=== PATIENT | female | born 1990 ===

== ENCOUNTER 2017-11-17 16:56 | Observation (INO) | payer OTHER ==
[~2017-11-17] VITALS: Ht 158.8 cm; Wt 71.7 kg
== END 2017-11-18 07:00 ==
LOC: CBCO 16:56 → GNO 21:05
DX: O47.03 False labor before 37 completed weeks of gestation, third trimester (principal); Z3A.36 36 weeks gestation of pregnancy
CPT/HCPCS: 81001; 84112; 87086; G0378; G0463

== ENCOUNTER 2017-11-22 14:48 | Observation (INO) | payer OTHER ==
[~2017-11-22] VITALS: Ht 157.5 cm; Wt 70.8 kg
[2017-11-22] MEDS ORDERED: PRENATAL TABLE1 EAC2 PO (15:12)
[2017-11-22] MEDS ORDERED: ZANTAC150 M1 PO (15:14)
[2017-11-22 15:36] LABS: ABSOLUTE BASOPHIL COUNT 0 /CUMM (0.0-0.2); ABSOLUTE EOSINOPHIL COUNT 0 /CUMM (0.0-0.7); ABSOLUTE GRANULOCYTE CT 7.2 /CUMM (1.4-6.5); ABSOLUTE LYMPH COUNT 1.7 /CUMM (1.2-3.4); ABSOLUTE MONOCYTE COUNT 0.4 /CUMM (0.10-0.60); BASOPHIL % 0.2 % (0.0-2.0); EOSINOPHIL % 0.4 % (0-5); GRANULOCYTE % 76.8 % (42.2-75.2); HEMATOCRIT 33.9 % (37-47); MEAN CORPUSCULAR HGB 28.7 PG (27.0-31.0); MEAN CORPUSCULAR HGB CONC 33.1 G/DL (33.0-37.0); MEAN CORPUSCULAR VOLUME 86.8 FL (81.0-99.0); MEAN PLATELET VOLUME 7.1 FL (7.4-10.4); PLATELET COUNT 367 /CUMM (130-400); RBC DISTRIBUTION WIDTH 16.2 % (11.5-14.5); RED BLOOD CELL CT 3.91 /CUMM (4.20-5.40); WHITE BLOOD CELL COUNT 9.4 /CUMM (4.8-10.8)
--- NOTE | 2017-11-22 18:51 | PN- OBGYN ---
Surgical Brief Attending Note Brief Attending Note: 27yo, , 37 wks, she was sent from office for labor evaluation. uncomplicated course, as per pt, she felt some ctxs today, ? LOF, no VB , reports GDFM. GBS negative on TOCO: irregular ctxs, FHR cat I, cervix 5-6/80%/-2, Amnisure negative. pt was encourage to ambulate, cervix remained unchage after 3 hours. will keep pt at [facility] for observation overnight.
[2017-11-22 19:23] VITALS: BP 99/60
== END 2017-11-23 08:30 ==
LOC: GNO 14:48
PROVIDERS: Obstetrics & Gynecology
DX: O47.03 False labor before 37 completed weeks of gestation, third trimester (principal); Z3A.36 36 weeks gestation of pregnancy
CPT/HCPCS: GNOP; 81001; 84112; 87389; G0378; G0463; J7120

== ENCOUNTER 2017-11-28 17:50 | Inpatient (IN) | payer OTHER ==
[~2017-11-28] VITALS: Ht 157.5 cm; Wt 71.0 kg
[~2017-11-28 17:50] MED LIST: PRENATAL TABLE1 EAC2 PO; ZANTAC150 M1 PO
[2017-11-28 18:38] VITALS: BP 113/57
[2017-11-28 19:44] LABS: ABSOLUTE BASOPHIL COUNT 0 /CUMM (0.0-0.2); ABSOLUTE EOSINOPHIL COUNT 0.1 /CUMM (0.0-0.7); ABSOLUTE GRANULOCYTE CT 8.3 /CUMM (1.4-6.5); ABSOLUTE LYMPH COUNT 2.4 /CUMM (1.2-3.4); ABSOLUTE MONOCYTE COUNT 0.7 /CUMM (0.10-0.60); BASOPHIL % 0.3 % (0.0-2.0); EOSINOPHIL % 0.6 % (0-5); GRANULOCYTE % 72.7 % (42.2-75.2); HEMATOCRIT 34.2 % (37-47); MEAN CORPUSCULAR HGB 28.6 PG (27.0-31.0); MEAN CORPUSCULAR HGB CONC 33.1 G/DL (33.0-37.0); MEAN CORPUSCULAR VOLUME 86.4 FL (81.0-99.0); MEAN PLATELET VOLUME 7.5 FL (7.4-10.4); PLATELET COUNT 369 /CUMM (130-400); RED BLOOD CELL CT 3.96 /CUMM (4.20-5.40); WHITE BLOOD CELL COUNT 11.4 /CUMM (4.8-10.8)
--- NOTE | 2017-11-28 19:53 | History & Physical ---
General Information and HPI MD Statement: I have seen and personally examined COURTNEY GOODWIN and documented this H&P. The patient is a 27 year old female at [37] weeks and [6] days gestation who presented with a chief complaint of [LOF]. 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 denies VB, reports GFM. came in for evaluation, amnisure positive. care started at 25 wks, uncomplicated thus far. 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 History: non-contributory Past Pregnancies Past Pregnancies: Date of Delivery: 07/13/2015 11/27/2016 Gestational Age: 40wks Weight: 8lbs 8lbs6 oz Type of Delivery: vaginal Anesthesia: epidural Complications: none Medical History Blood Transfusion Hx: No Neurological: NONE EENT: NONE Cardiovascular: NONE Respiratory: NONE Gastrointestinal: NONE Hepatic: NONE Renal: NONE Musculoskeletal: NONE Psychiatric: NONE Endocrine: NONE Blood Disorders: NONE Cancer(s): NONE 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 Home Smoking Status: Never Smoked ETOH Use: denies use Illicit Drug Use: denies illicit drug use Review of Systems Review of Systems Constitutional: Reports: no symptoms. EENTM: Reports: no symptoms. Cardiovascular: Reports: no symptoms. Respiratory: Reports: no symptoms. GI: Reports: no symptoms. Genitourinary: Reports: see HPI. Musculoskeletal: Reports: no symptoms. Skin: Reports: no symptoms. Neurological/Psychological: Reports: no symptoms. Hematologic/Endocrine: Reports: no symptoms. Immunologic/Allergic: Reports: no symptoms. All Other Systems: Reviewed and Negative Date of LMP: 03/08/17 Exam & Diagnostic Data Last 24 Hrs of Vital Signs/I&O Vital Signs Date Time Temp Pulse Resp B/P B/P Pulse O2 O2 Flow FiO2 Mean Ox Delivery Rate 11/28 1837 113/57 Obstetric Exam Wgt Gained During : 12 lb Pelvimetry: adequate Dilation (cm): 5 Effacement (%): 80 Station: -1 Membranes: SROM Fluid: clear Fundal Height (cm): 37 Multiple Gestation? No Contractions: occasional Infant #1 - FHR Baseline: 120 Category: 1 Estimated Weight: 3300g Presentation: vertex Patient for Induction? No Physical Exam: VSS General: NAD Abdomen: gravid, soft, nontender Ext: DCT (-) Labs Blood Type & Rh: O positive Antibody Screen: negative Hct/Hgb & Platelets #1: 10.5/33.8%,[id number] Hct/Hgb & Platelets #2: 11.3/34.2%,PLT [id number] Rubella: immune VDRL #1: negative VDRL #2: negative HbsAg: negative HIV #1: negative HIV #2 negative 1 Hr P Group B Strep: negative Initial Ultrasound: IUP at 25 wks Anatomy Ultrasound: NL Genetic Testing: none Last 24 Hrs of Labs/Perico: Laboratory Tests 11/28/17 1850: CBC w Diff NO MAN DIFF REQ, RBC 3.96 L, MCV 86.4, MCH 28.6, MCHC 33.1, RDW 16.0 H, MPV 7.5, Gran % 72.7, Lymphocytes % 20.5, Monocytes % 5.9, Eosinophils % 0.6 , Basophils % 0.3, Absolute Granulocytes 8.3 H, Absolute Lymphocytes 2.4, Absolute Monocytes 0.7 H, Absolute Eosinophils 0.1, Absolute Basophils 0 11/28/17 1805: Membrane Rupture POSITIVE Assessment/Plan Assessment/Plan: 27yo, , 37 6/7wks SROM 1. admit pt, admission labs 2. pain management as needed 3. may consider pitocin augmentation if needed As Ranked By This Provider Problem List: 1. 2. SROM (spontaneous rupture of membranes) Core Measures Venous Thromboembolism VTE Risk Factors / No Mechanical VTE Prophylaxis d/t LowRisk-No Interven Req'd No VTE Pharm Prophylaxis d/t LowRisk-No Interven Rewili'd Attending MD Review Statement Attending Statement Attending MD Statement: examined this patient, discussed with family, discussed w/nursing
--- NOTE | 2017-11-28 23:09 | PN- OBGYN ---
Surgical Brief Attending Note Brief Attending Note: pt is comfortable with epidural, no complaints. pitocin at 8 mU/min on TOCO: ctxs q 3min, FHR baseline 115, moderate variability, + acels, 1 variable decles to 70, last 20 sec, then gradually return to baseline,with moderate variability cervix 6/90%/-1 will continue monitor closely
--- NOTE | 2017-11-29 05:22 | PN- OBGYN ---
Surgical Brief Attending Note Brief Attending Note: pt is comfortable with epidural, no complaints, pitocin at 16 mU/min on TOCO: ctxs q 2-3 min, FHR [id number], moderate variablity, + acels, no decels cervix 6-7cm/90%/-1 will continue monitor closely
--- NOTE | 2017-11-29 10:28 | PN- OBGYN ---
Surgical Brief Attending Note Brief Attending Note: Pt. supine in bed awake, leg up on the peanut, denies pain but c/o GERD sxs and would like some medicine PO. FHR 140, category 1, UCs 2-4, subtle coupling Cervix 6cm, 70% floppy, head -2 not applied to cervix and can be manually rotated easily. A/P protracted labor on Pitocin for PROM membranes have been ruptured for 24 hours now and samynet's temp is 99.5, I recommended giving IV antibiotics and Tylenol to help protect the baby, patient agrees - will continue Pitocin perprotocol and re-examine her in 2 hours - I explained to the patient that if the baby gets stressed or if patient gets sick with fever, or of hr labor does not progress all day, I will need to deliver her baby by C/S. - Bicitrate and IV Pepcid for her heartburn as requested
--- NOTE | 2017-11-29 12:56 | Labor & Delivery Summary ---
Delivery Summary Vaginal Delivery: Vaginal: vertex Episiotomy/Lacerations: Episiotomy/Lacerations: first degree perineal laceration Repair: 3.0 Vicryl Anesthesia: epidural Placenta: Placenta: spontanteous, normal, 3 vessel, nuchal cord (x_) (2), true knot, loose nuchal cord X2, easily reduced on the perineum very long cord true knot X1 Anesthesia: block Baby's Weight: [id number] Apgars - 1 Min: 9 Apgars - 5 Min: 9 Additional Comments: Multipara was delivered at 37w of a single viable female , 9,9 [id number] from the SARAH position over an intact perineum with 1st-degree laceration.Nuchal cord X2 loose easily reduced on the perineum True knot X1, loose. AF clear, 3VC, placenta delivered spontaneously and intact. Repair with 3.0 Vicryl in layers. Vulvar structures, lateral vaginal peterson, cervix, rectal sphincter and mucosa intact. Small clots evacuated from the JENN, fundus firm, EBL 100cc. Sponge and sharps correct.
[2017-11-30 08:59] LABS: ABSOLUTE BASOPHIL COUNT 0 /CUMM (0.0-0.2); ABSOLUTE EOSINOPHIL COUNT 0.1 /CUMM (0.0-0.7); ABSOLUTE GRANULOCYTE CT 7.7 /CUMM (1.4-6.5); ABSOLUTE LYMPH COUNT 2.9 /CUMM (1.2-3.4); ABSOLUTE MONOCYTE COUNT 0.5 /CUMM (0.10-0.60); BASOPHIL % 0.3 % (0.0-2.0); EOSINOPHIL % 0.6 % (0-5); GRANULOCYTE % 68.6 % (42.2-75.2); MEAN CORPUSCULAR HGB CONC 33.5 G/DL (33.0-37.0); MEAN CORPUSCULAR VOLUME 86.4 FL (81.0-99.0); MEAN PLATELET VOLUME 7.5 FL (7.4-10.4); PLATELET COUNT 321 /CUMM (130-400); RBC DISTRIBUTION WIDTH 15.7 % (11.5-14.5); RED BLOOD CELL CT 3.93 /CUMM (4.20-5.40); WHITE BLOOD CELL COUNT 11.2 /CUMM (4.8-10.8)
--- NOTE | 2017-11-30 11:55 | PN- OBGYN ---
Surgical Brief Attending Note Brief Attending Note: pt feeling well. amb / void / helga po. pain well controlled. +bf. afeb, v/ss nad abd soft nt ff oneal mod lochia ext nt no ed a/p ppd 1 s/p , doing well -routine pp care -ant d/c home federico
[2017-12-01] MEDS ORDERED: IBUPROFEN800 M1 PO (10:21)
--- NOTE | 2017-12-01 10:30 | PN- Post Delivery/GYN ---
Subjective Subjective: feeling well Review of Systems Constitutional: Denies: chills, fever. EENTM: Denies: blurred vision, double vision, visual changes. Cardiovascular: Denies: chest pain, edema. Respiratory: Denies: cough, short of breath. Gastrointestinal: Denies: abdominal pain, diarrhea, melena, vomiting. Genitourinary: Denies: dysuria. Neurological/Psychological: Denies: anxiety, depressed. Objective Last 24 Hrs of Vital Signs/I&O vss Physical Exam General Appearance Alert, Oriented X3, Cooperative, No Acute Distress Cardiovascular Regular Rate Lungs Clear to Auscultation Abdomen Soft Pelvic (FEMALE) lochia serosanganous Current Medications: Current Medications Sig/Evelyn Start time Last Medication Dose Route Stop Time Status Admin Acetaminophen 650 MG Q4P PRN 11/29 1215 AC PO Bisacodyl 10 MG Q12P PRN 11/30 1200 AC NV Docusate Sodium 0 .STK-MED ONE 11/30 1406 DC PO Docusate Sodium 100 MG TID 11/30 1400 AC 11/30 PO 2047 Ephedrine 5 MG EVERY 5 MIN PRN 11/28 2345 AC 11/29 IV 0200 Ibuprofen 800 MG Q6P PRN 11/29 1215 AC 12/01 PO 0644 Lanolin 0 .STK-MED ONE 11/30 1111 DC TOP Magnesium Hydroxide 30 ML DAILY PRN 11/29 1215 AC PO Oxycodone/ 1 TAB Q3P PRN 11/29 1215 AC 11/30 Acetaminophen PO 2046 Oxytocin 30 UNITS PER PROTOCL 11/28 2000 AC 11/28 Lactated Ringer's 500 ML IV 2200 Assessment/Plan Assessment/Plan PPD #2 vss afebrile plan d/c home Problem List: 1. SROM (spontaneous rupture of membranes) Attending MD Review Statement Attending Statement Attending MD Statement: examined this patient, discussed with family, discussed with nursing
== END 2017-12-01 11:00 | DRG 560 ==
LOC: CBCO 17:50 → GNO 18:33
PROVIDERS: Obstetrics & Gynecology
PROC: 10E0XZZ Delivery of Products of Conception, External Approach (ICD-10-PCS; principal; 2017-11-29)
PROC: 0HQ9XZZ Repair Perineum Skin, External Approach (ICD-10-PCS; principal; 2017-11-29)
DX: O70.0 First degree perineal laceration during delivery (principal); O69.81X0 Labor and delivery complicated by cord around neck, without compression, not applicable or unspecified; Z3A.38 38 weeks gestation of pregnancy; Z37.0 Single live birth
CPT/HCPCS: GNOP; GNOS; 36415; 81003; 84112; J0290; J1200; J7120